=== PATIENT | male | born 1995 | race Native Hawaiian/Other Pacific Islander ===

== ENCOUNTER 2017-01-05 14:16 | Emergency (ER) | payer BC ==
[~2017-01-05] VITALS: Ht 177.8 cm; Wt 78.0 kg
[2017-01-05 14:25] VITALS: BP 127/83; TEMP 98.2
[2017-01-05] MEDS ORDERED: DICL75TA4 PO (14:37)
== END 2017-01-05 15:42 | disposition home or self-care (01) ==
LOC: ED 14:16
PROC: 2W3EX1Z Immobilization of Right Hand using Splint (ICD-10-PCS; principal; 2017-01-05)
DX: S60.221A Contusion of right hand, initial encounter (principal); S60.041A Contusion of right ring finger without damage to nail, initial encounter; S60.051A Contusion of right little finger without damage to nail, initial encounter; W22.8XXA Striking against or struck by other objects, initial encounter; Y92.098 Other place in other non-institutional residence as the place of occurrence of the external cause
CPT/HCPCS: 99283

== ENCOUNTER 2018-12-07 00:49 | Emergency (ER) | payer OTHER ==
[~2018-12-07 00:49] MED LIST: DICL75TA4 PO
== END 2018-12-07 01:00 | disposition home or self-care (01) ==
LOC: ED 00:49
DX: M79.641 Pain in right hand (principal)
CPT/HCPCS: 99281